=== PATIENT | female | born 1975 | race Caucasian/White ===

== ENCOUNTER 2017-08-21 18:59 | Emergency (ER) | payer SELFPAY ==
[~2017-08-21] VITALS: Ht 165.1 cm; Wt 70.0 kg
[2017-08-21 19:01] VITALS: BP 145/67; PULSE 84; RESP 15; TEMP 98.8; O2SAT 98
--- NOTE | 2017-08-21 19:50 | PD ---
HPI Chief Complaint: Pain: Acute or Chronic Time Seen by Provider: 19:41 Travel History International Travel<30 days: No Contact w/Intl Traveler<30days: No Traveled to known affect area: No History of Present Illness HPI 42-year-old white female presents to emergency department complaining of neuropathy in her feet. She states that she moved from [facility] to [place] 2 months ago. She has no insurance or no doctor. Patient states that she also has a history of fibromyalgia. She has pain and altered sensation in her feet. She states that she was on 15 mg of oxycodone twice daily. She states that she takes no medication at this time. He states that she has diet-controlled diabetes. She also had received chemotherapy several years ago due to a bladder cancer. She is currently in remission. She has had no recent illness or injuries. Pain is [id number] History Past Medical Histgory Narrative Medical Diet-controlled diabetes, fibromyalgia, history of bladder cancer, neuropathy Tetanus Vaccination: < 5 Years ?: Not Past Surgical History Narrative Surgical Hysterectomy, cystoscopy with laser of bladder tumor Social History Alcohol Use: No Tobacco Use: No Review of Systems Except as stated in HPI: all other systems reviewed are Neg Physical Exam Narrative GENERAL: Well-developed, well-nourished in no acute distress. Nontoxic appearing. HEAD: Normocephalic, atraumatic. EYES: Pupils equal round and reactive. Extraocular motions intact. No scleral icterus. No injection or drainage. ENT: TMs clear without erythema. The external auditory canals clear. Nose: clear . Posterior pharynx is pink and moist. No tonsillar edema or exudate. Uvula midline. Airway patent. NECK: Trachea midline.Supple, nontender, moves head freely. No central bony tenderness or spasm. CARDIOVASCULAR: Regular rate and rhythm without murmurs, gallops, or rubs. RESPIRATORY: Clear to auscultation. Breath sounds equal bilaterally. No wheezes , rales, or rhonchi. GASTROINTESTINAL: Abdomen soft, non-tender, nondistended. No hepato-splenomegaly , or palpable masses. No guarding. EXTREMITIES: No clubbing, cyanosis, or edema. No joint tenderness, effusion, or edema noted. Patient has intact gross sensation. There is no erythema or warmth. She has intact pulses with good Refill. BACK: Nontender without deformity or crepitance. No flank tenderness. Data Data Last Documented VS Vital Signs Date Time Temp Pulse Resp B/P (MAP) Pulse Ox O2 Delivery O2 Flow Rate FiO2 08/21/17 19:01 98.8 84 15 145/67 (93) 98 MDM Medical Screen Exam Complete: Yes Emergency Medical Condition: No Differential Diagnosis Differential diagnosis: Fibromyalgia, chronic pain, neuropathy, malingering Narrative Course A medical screening exam was performed: At the time of evaluation the presenting medical condition was determined not to be of an emergent nature. The patient was given the option of receiving additional care, but declined. Patient was given options for additional community resources from which to obtain care. The Patient Has Been advised to seek medical attention for their presenting complaint. The patient has been advised to return to the ER at any time if an emergent condition develops. Primary Impression: Encounter for medical screening examination Condition: Baldev Rico Aug 21, 2017 19:50
== END 2017-08-21 20:04 | disposition left against medical advice (07) ==
LOC: NEPK 18:59
DX: E11.40 Type 2 diabetes mellitus with diabetic neuropathy, unspecified (principal); M79.7 Fibromyalgia
CPT/HCPCS: 99281

== ENCOUNTER 2017-10-26 16:40 | Emergency (ER) | payer SELFPAY ==
[~2017-10-26] VITALS: Ht 160 cm; Wt 71.5 kg
[2017-10-26 16:51] VITALS: BP 137/65; PULSE 92; RESP 16; TEMP 100.3; O2SAT 99
[2017-10-26] MEDS ORDERED: BACT800T5 PO (17:46)
--- NOTE | 2017-10-26 17:47 | PD ---
HPI Chief Complaint: Skin Problem Time Seen by Provider: 17:37 Travel History International Travel<30 days: No Contact w/Intl Traveler<30days: No Traveled to known affect area: No History of Present Illness HPI 42-year-old female here with sore throat, nasal congestion, cough and possible abscess to the right shoulder. She reports that upper respiratory symptoms started approximately 3 days ago. Her spouse has similar flulike symptoms. She noticed the abscess to her right shoulder approximately 5 days ago and it began to spontaneously drain one day ago. She reports history of multiple abscesses in the past. Denies IV drug use. She denies fever or chills, headache, neck pain, chest pain, shortness of breath, abdominal pain. Symptoms severity moderate. She has not taken any [id number] medications. PFSH Past Medical History Medical History: Denies Significant Hx ?: Not Past Surgical History Hysterectomy: Yes Social History Alcohol Use: No Tobacco Use: No Allergies-Medications (Allergen,Severity, Reaction): Coded Allergies: povidone-iodine (Verified Allergy, Unknown, 10/26/17) soap (Verified Allergy, Unknown, 10/26/17) Reported Meds & Prescriptions Reported Meds & Active Scripts Active Bactrim DS (Sulfamethoxazole-Trimethoprim) 800-160 Mg Tab 1 Tab PO BID Review of Systems Except as stated in HPI: all other systems reviewed are Neg Physical Exam Narrative GENERAL: Alert female in no distress. SKIN: Warm and dry. 1 cm area of erythema, induration with central scab with small amount of purulent drainage. HEAD: Normocephalic. EYES: No scleral icterus. No injection or drainage. MOUTH: Pharyngeal erythema without tonsillar hypertrophy or exudate. NECK: Supple, trachea midline. No JVD or lymphadenopathy. No meningismus. CARDIOVASCULAR: Regular rate and rhythm without murmurs, gallops, or rubs. RESPIRATORY: Breath sounds equal bilaterally. No accessory muscle use. Coughing throughout the exam GASTROINTESTINAL: Abdomen soft, non-tender, nondistended. MUSCULOSKELETAL: No cyanosis, or edema. Right anterior shoulder: 1 cm area of erythema, induration with central scab with small amount of purulent drainage. No warmth, erythema, swelling of the shoulder joint. BACK: Nontender without obvious deformity. No CVA tenderness. Data Data Last Documented VS Vital Signs Date Time Temp Pulse Resp B/P (MAP) Pulse Ox O2 Delivery O2 Flow Rate FiO2 10/26/17 16:51 100.3 92 16 137/65 (89) 99 MDM Medical Decision Making Medical Screen Exam Complete: Yes Emergency Medical Condition: Yes Differential Diagnosis Influenza, abscess, cellulitis Narrative Course 42-year-old female here for evaluation of URI/influenza-like symptoms as well as a draining abscess to her right anterior upper extremity. URI symptoms present for approximately 3 days. Abscess present for approximately 5 days and spontaneously drained yesterday. She was concerned the area was a spider bite which prompted her visit today. She is well-appearing. She was found to be febrile at 100.3 in triage. I believe this is due to the viral illness not the abscess. The abscess itself is quite small located to the anterior proximal humerus. No joint involvement suspected. The area spontaneously drained on its own. It is indurated at this time. She'll be on antibiotics and discuss symptomatic treatment for viral URI. Diagnosis Primary Impression: Abscess Additional Impression: Viral illness Referrals: [facility] Additional Instructions: Take [id number] Tylenol or ibuprofen as needed for fever. Apply warm compresses to the abscess several times per day. Follow-up with your primary doctor return to emergency department for recheck. Scripts Sulfamethoxazole-Trimethoprim (Bactrim DS) 800-160 Mg Tab 1 TAB PO BID for Infection, #20 TAB 0 Refills Prov: Марина Diamond 10/26/17 Disposition: 01 DISCHARGE HOME Condition: Stable Марина Diamond Oct 26, 2017 17:47
[2017-10-26] MEDS ORDERED: IBUPROFEN 800 MG TAB PO ONE (18:00)
[2017-10-26] MEDS ORDERED: SULFAMETHOXAZOLE-TRIMETHOPRIM DS 800-160 MG TAB PO ONE (18:00)
== END 2017-10-26 18:00 | disposition home or self-care (01) ==
LOC: PHED 16:40 → PHEFT 18:00
DX: L02.413 Cutaneous abscess of right upper limb (principal); B34.9 Viral infection, unspecified
CPT/HCPCS: 99283

== ENCOUNTER 2018-04-25 19:38 | Emergency (ER) | payer SELFPAY ==
[~2018-04-25] VITALS: Ht 160 cm; Wt 66.5 kg
[~2018-04-25 19:38] MED LIST: BACT800T5 PO
[2018-04-25 19:44] VITALS: BP 144/65; PULSE 82; RESP 18; TEMP 98.9; O2SAT 99
[2018-04-25] MEDS ORDERED: ONDANSETRON HCL 4 MG/2 ML VIAL IV PUSH ONE (21:00)
[2018-04-25] MEDS ORDERED: SODIUM CHLOR 0.9% 1000 ML INJ 1,000 ML IV ONE (21:00)
[2018-04-25] MEDS ORDERED: PANTOPRAZOLE SODIUM 40 MG VIAL IV PUSH ONE (21:00)
[2018-04-25 21:07] LABS: AUTOMATED NEUTROPHIL # 7.6 TH/MM3 (1.8-7.7); BASOPHIL # 0.1 TH/MM3 (0-0.2); BASOPHIL % 1.3 % (0.0-2.0); EOSINOPHIL # 0.2 TH/MM3 (0-0.4); EOSINOPHIL % 2.2 % (0.0-4.0); HEMATOCRIT 36.5 % (35.0-46.0); HEMOGLOBIN 12.9 GM/DL (11.6-15.3); LYMPH % 24.5 % (9.0-44.0); LYMPHOCYTE # 2.8 TH/MM3 (1.0-4.8); MEAN CELL VOLUME 91.3 FL (80.0-100.0); MEAN CORPUSCULAR HEMOGLOBIN 32.3 PG (27.0-34.0); MEAN CORPUSCULAR HGB CONC 35.4 % (32.0-36.0); MEAN PLATELET VOLUME 7.6 FL (7.0-11.0); MONO % 5.6 % (0.0-8.0); MONOCYTE # 0.6 TH/MM3 (0-0.9); NEUT % 66.4 % (16.0-70.0); PLATELET COUNT 350 TH/MM3 (150-450); RED CELL DISTRIBUTION WIDTH 12.2 % (11.6-17.2); WHITE BLOOD COUNT 11.3 TH/MM3 (4.0-11.0)
[2018-04-25 21:13] LABS: CHLORIDE 110 MEQ/L (98-107); SODIUM (NA) 142 MEQ/L (136-145)
[2018-04-25 21:17] LABS: INTERNATIONAL NORMALIZED RATIO 1.1 RATIO; PROTHROMBIN TIME - PATIENT 11.3 SEC (9.8-11.6)
[2018-04-25 21:18] LABS: CALCIUM 8.5 MG/DL (8.5-10.1)
[2018-04-25 21:19] LABS: ALBUMIN 3.6 GM/DL (3.4-5.0); BICARBONATE 25.9 MEQ/L (21.0-32.0); BLOOD UREA NITROGEN 11 MG/DL (7-18); GLUCOSE,RANDOM 82 MG/DL (74-106)
[2018-04-25 21:21] LABS: ALT (GPT) 15 U/L (10-53); AST (GOT) 12 U/L (15-37); CREATININE 0.85 MG/DL (0.50-1.00); GLOMERULAR FILTRATION RATE 73 ML/MIN (>89)
[2018-04-25 21:23] LABS: TOTAL BILIRUBIN ADULT 0.3 MG/DL (0.2-1.0); TOTAL PROTEIN 6.7 GM/DL (6.4-8.2)
[2018-04-25 21:24] LABS: ALKALINE PHOSPHATASE 44 U/L (45-117)
[2018-04-25 21:26] LABS: TROPONIN I LESS THAN 0.02 NG/ML (0.02-0.05)
--- NOTE | 2018-04-25 21:56 | RADRPT ---
EXAM DATE: 04/25/2018 9:36 PM EDT AGE/SEX: 43 years / Female INDICATIONS: Bilateral lower quadrant pain. Difficulty urinating. Loss of appetite. CLINICAL DATA: This is the patient's initial encounter. Patient reports that signs and symptoms have been present for 3 days and indicates a pain score of 7/10. MEDICAL/SURGICAL HISTORY: Carcinoma, bladder. Diabetes. Hysterectomy. Tubal ligation. Bladder . RADIATION DOSE: 7.12 CTDI (mGy) COMPARISON: No prior [facility] exams available for comparison. TECHNIQUE: Multiple contiguous axial images were obtained through the abdomen. Images were obtained using multiple row detector helical technique. Using dose reduction techniques, radiation dose was ke pt as low as reasonably achievable to obtain optimal diagnostic quality images. FINDINGS: Lung bases are clear. No acute findings in the liver, spleen, adrenals, kidneys or pancreas. No calci fied gallstones or biliary ductal dilatation. The liver is enlarged to 20.8 cm in length. No acute bony abnormalities. Degenerative changes at the pubic symphysis. CONCLUSION: 1. No acute findings. Hepatomegaly. No renal calculi or obstructive uropathy. Electronically signed by: Baldev Howard MD 04/25/2018 9:55 PM EDT
[2018-04-25] MEDS ORDERED: IBUPROFEN 800 MG TAB PO ONE (22:45)
[2018-04-25 23:01] LABS: BILIRUBIN, URINE NEG (NEG); BLOOD, URINE NEG (NEG); GLUCOSE,URINE NEG (NEG); KETONE, URINE NEG (NEG); NITRITE,URINE NEG (NEG); URINE COLOR YELLOW (YELLW/STRAW); URINE LEUKOCYTE ESTERASE NEG (NEG)
[2018-04-25 23:07] LABS: RBC, URINE 0-2 /hpf (0-3); SQUAMOUS EPITHELIAL CELL URINE 0-5 /hpf (0-5); WBC, URINE 0-2 /hpf (0-5)
[2018-04-25] MEDS ORDERED: ZOFR4TAB3 SL (23:30)
--- NOTE | 2018-04-25 23:30 | PD ---
HPI Chief Complaint: GI Complaint Time Seen by Provider: 20:36 Travel History International Travel<30 days: No Contact w/Intl Traveler<30days: No Traveled to known affect area: No History of Present Illness HPI This is a 43-year-old female presented the ER for evaluation of urinary retention for the last day. Patient has a history of "bladder cancer" was diagnosed 2014 and received "laser treatment" and 4 months of chemotherapy. Patient states she has been cancer free since 2014 but she is worried about having to consider back since she is unable to urinate since yesterday. Prior to yesterday she had her urine was normal with no blood or pain or burning urination. Patient has been complaining also of nausea and vomiting but no abdominal pain or fever or chills or night sweats. PFSH Past Medical History Autoimmune Disease: Yes (fibromyalgia) Cancer: Yes (female organs and bladder) Cardiovascular Problems: Yes (MURMUR) Diabetes: Yes (DIET CONTROLLED) Patient Takes Glucophage: No Diminished Hearing: No Tetanus Vaccination: > 5 Years Influenza Vaccination: No ?: Not LMP: 09/04/2014 Tubal Ligation: Yes Past Surgical History Gynecologic Surgery: Yes (cryotherapy) Hysterectomy: Yes Social History Alcohol Use: Yes (socially) Tobacco Use: Yes (1 ppd) Substance Use: No Allergies-Medications (Allergen,Severity, Reaction): Coded Allergies: povidone-iodine (Verified Allergy, Unknown, 04/25/18) soap (Verified Allergy, Unknown, 04/25/18) acetaminophen (Verified Adverse Reaction, Unknown, VOMITING, 04/25/18) Reported Meds & Prescriptions Reported Meds & Active Scripts Active Bactrim DS (Sulfamethoxazole-Trimethoprim) 800-160 Mg Tab 1 Tab PO BID Review of Systems Except as stated in HPI: all other systems reviewed are Neg Physical Exam Narrative GENERAL: Alert oriented 3 no acute distress SKIN: Focused skin assessment warm/dry. HEAD: Atraumatic. Normocephalic. EYES: Pupils equal and round. No scleral icterus. No injection or drainage. ENT: No nasal bleeding or discharge. Mucous membranes pink and moist. NECK: Trachea midline. No JVD. CARDIOVASCULAR: Regular rate and rhythm. No murmur appreciated. RESPIRATORY: No accessory muscle use. Clear to auscultation. Breath sounds equal bilaterally. GASTROINTESTINAL: Abdomen soft, non-tender, nondistended. Hepatic and splenic margins not palpable. MUSCULOSKELETAL: No obvious deformities. No clubbing. No cyanosis. No edema. NEUROLOGICAL: Awake and alert. No obvious cranial nerve deficits. Motor grossly within normal limits. Normal speech. PSYCHIATRIC: Appropriate mood and affect; insight and judgment normal. Data Data Last Documented VS Vital Signs Date Time Temp Pulse Resp B/P (MAP) Pulse Ox O2 Delivery O2 Flow Rate FiO2 04/25/18 20:48 18 04/25/18 19:44 98.9 82 144/65 (91) 99 Orders Orders Comprehensive Metabolic Panel (04/25/18 20:46) Complete Blood Count With Diff (04/25/18 20:46) Act Partial Throm Time (Ptt) (04/25/18 20:46) Prothrombin Time / Inr (Pt) (04/25/18 20:46) Lipase (04/25/18 20:46) Troponin I (04/25/18 20:46) Urinalysis - C+S If Indicated (04/25/18 20:46) Sodium Chlor 0.9% 1000 Ml Inj (Ns 1000 M (04/25/18 21:00) Pantoprazole Inj (Protonix Inj) (04/25/18 21:00) Ondansetron Inj (Zofran Inj) (04/25/18 21:00) Ct Abd/Pel W/O Iv Contrast (04/25/18 ) Urinary Catheter Management STEVENSON.Q8H (04/25/18 22:33) Ibuprofen (Motrin) (04/25/18 22:45) Labs Laboratory Tests Test 04/25/18 21:00 04/25/18 22:54 White Blood Count 11.3 TH/MM3 Red Blood Count 4.00 MIL/MM3 Hemoglobin 12.9 GM/DL Hematocrit 36.5 % Mean Corpuscular Volume 91.3 FL Mean Corpuscular Hemoglobin 32.3 PG Mean Corpuscular Hemoglobin Concent 35.4 % Red Cell Distribution Width 12.2 % Platelet Count 350 TH/MM3 Mean Platelet Volume 7.6 FL Neutrophils (%) (Auto) 66.4 % Lymphocytes (%) (Auto) 24.5 % Monocytes (%) (Auto) 5.6 % Eosinophils (%) (Auto) 2.2 % Basophils (%) (Auto) 1.3 % Neutrophils # (Auto) 7.6 TH/MM3 Lymphocytes # (Auto) 2.8 TH/MM3 Monocytes # (Auto) 0.6 TH/MM3 Eosinophils # (Auto) 0.2 TH/MM3 Basophils # (Auto) 0.1 TH/MM3 CBC Comment DIFF FINAL Differential Comment Prothrombin Time 11.3 SEC Prothromb Time International Ratio 1.1 RATIO Activated Partial Thromboplast Time 26.8 SEC Blood Urea Nitrogen 11 MG/DL Creatinine 0.85 MG/DL Random Glucose 82 MG/DL Total Protein 6.7 GM/DL Albumin 3.6 GM/DL Calcium Level 8.5 MG/DL Alkaline Phosphatase 44 U/L Aspartate Amino Transf (AST/SGOT) 12 U/L Alanine Aminotransferase (ALT/SGPT) 15 U/L Total Bilirubin 0.3 MG/DL Sodium Level 142 MEQ/L Potassium Level 3.5 MEQ/L Chloride Level 110 MEQ/L Carbon Dioxide Level 25.9 MEQ/L Anion Gap 6 MEQ/L Estimat Glomerular Filtration Rate 73 ML/MIN Troponin I LESS THAN 0.02 NG/ML Lipase 112 U/L Urine Color YELLOW Urine Turbidity CLEAR Urine pH 5.0 Urine Specific [place] 1.010 Urine Protein NEG mg/dL Urine Glucose (UA) NEG mg/dL Urine Ketones NEG mg/dL Urine Occult Blood NEG Urine Nitrite NEG Urine Bilirubin NEG Urine Urobilinogen 0.2 MG/DL Urine Leukocyte Esterase NEG Urine RBC 0-2 /hpf Urine WBC 0-2 /hpf Urine Squamous Epithelial Cells 0-5 /hpf Urine Bacteria NONE /hpf Microscopic Urinalysis Comment CULT NOT INDICATED MDM Medical Decision Making Medical Screen Exam Complete: Yes Emergency Medical Condition: Yes Differential Diagnosis The urinary retention, bladder cancer, nephrolithiasis. Narrative Course 43-year-old female here for evaluation of urinary retention. Physical examination is unremarkable, vitals are stable, patient was hesitant to let the nurse put the a urinary catheter in but she finally agreed to put a cast., Urinalysis is negative, labs are within normal limits except for mildly elevated white blood count. CAT scan shows normal evidence of urinary bladder mass or abnormalities. There is no hematuria. The urine output in the catheter is about 150ml. I told the patient that she will need to keep the urine catheter in otherwise she might continue to have urinary retention but patient strongly refused to be discharged with a urinary catheter. I instructed the patient she can do self-catheterization if she have to and patient says that she has done that in the past. I also gave the patient clinic inflammation of his iliac clinic so that she can follow-up with them meanwhile if her symptoms change or do not improve she will have to come to the ER for further evaluation. For now there is no evidence of cancer in or any other abnormalities that warrant admission. Laboratory Tests Test 04/25/18 21:00 04/25/18 22:54 White Blood Count 11.3 TH/MM3 Red Blood Count 4.00 MIL/MM3 Hemoglobin 12.9 GM/DL Hematocrit 36.5 % Mean Corpuscular Volume 91.3 FL Mean Corpuscular Hemoglobin 32.3 PG Mean Corpuscular Hemoglobin Concent 35.4 % Red Cell Distribution Width 12.2 % Platelet Count 350 TH/MM3 Mean Platelet Volume 7.6 FL Neutrophils (%) (Auto) 66.4 % Lymphocytes (%) (Auto) 24.5 % Monocytes (%) (Auto) 5.6 % Eosinophils (%) (Auto) 2.2 % Basophils (%) (Auto) 1.3 % Neutrophils # (Auto) 7.6 TH/MM3 Lymphocytes # (Auto) 2.8 TH/MM3 Monocytes # (Auto) 0.6 TH/MM3 Eosinophils # (Auto) 0.2 TH/MM3 Basophils # (Auto) 0.1 TH/MM3 CBC Comment DIFF FINAL Differential Comment Prothrombin Time 11.3 SEC Prothromb Time International Ratio 1.1 RATIO Activated Partial Thromboplast Time 26.8 SEC Blood Urea Nitrogen 11 MG/DL Creatinine 0.85 MG/DL Random Glucose 82 MG/DL Total Protein 6.7 GM/DL Albumin 3.6 GM/DL Calcium Level 8.5 MG/DL Alkaline Phosphatase 44 U/L Aspartate Amino Transf (AST/SGOT) 12 U/L Alanine Aminotransferase (ALT/SGPT) 15 U/L Total Bilirubin 0.3 MG/DL Sodium Level 142 MEQ/L Potassium Level 3.5 MEQ/L Chloride Level 110 MEQ/L Carbon Dioxide Level 25.9 MEQ/L Anion Gap 6 MEQ/L Estimat Glomerular Filtration Rate 73 ML/MIN Troponin I LESS THAN 0.02 NG/ML Lipase 112 U/L Urine Color YELLOW Urine Turbidity CLEAR Urine pH 5.0 Urine Specific [place] 1.010 Urine Protein NEG mg/dL Urine Glucose (UA) NEG mg/dL Urine Ketones NEG mg/dL Urine Occult Blood NEG Urine Nitrite NEG Urine Bilirubin NEG Urine Urobilinogen 0.2 MG/DL Urine Leukocyte Esterase NEG Urine RBC 0-2 /hpf Urine WBC 0-2 /hpf Urine Squamous Epithelial Cells 0-5 /hpf Urine Bacteria NONE /hpf Microscopic Urinalysis Comment CULT NOT INDICATED Last 24 hours Impressions Abdomen/Pelvis CT 04/25/18 0000 Signed Impressions: CONCLUSION: 1. No acute findings. Hepatomegaly. No renal calculi or obstructive uropathy. Diagnosis Primary Impression: Urinary retention Referrals: [facility] Additional Instructions: Follow-up with primary care physician and return here if symptoms change or do not improve. Scripts Ondansetron Odt (Zofran Odt) 4 Mg Tab 4 MG SL Q12HR Y for Nausea/Vomiting, #30 TAB 0 Refills Prov: Jeancarlos Fuentes MD 04/25/18 Disposition: 01 DISCHARGE HOME Condition: Stable Jeancarlos Fuentes MD Apr 25, 2018 23:30
[2018-04-25 23:36] VITALS: BP 138/69
== END 2018-04-25 23:43 | disposition home or self-care (01) ==
LOC: PHED 19:38
DX: R33.9 Retention of urine, unspecified (principal); R11.2 Nausea with vomiting, unspecified; E11.9 Type 2 diabetes mellitus without complications; M79.7 Fibromyalgia; F17.200 Nicotine dependence, unspecified, uncomplicated; Z85.51 Personal history of malignant neoplasm of bladder
CPT/HCPCS: 51702; 74176; 80053; 81001; 83690; 84484; 85025; 85610; 85730; 96361; 96374; 96375; 99284; C9113; J2405; J7030